=== PATIENT | female | born 1960 | race Caucasian/White ===

== ENCOUNTER 2020-02-02 05:57 | Day surgery (SDC) | payer MEDICAID ==
[~2020-02-02] VITALS: Ht 154.9 cm; Wt 84.5 kg
--- NOTE | ~2020-02-02 | OP ---
PATIENT NAME: GAB VICENTE MEDICAL RECORD: [id number] :60 LOCATION:D.OPS ADMISSION DATE: SURGEON: IMELDA CASTRO MD DATE OF OPERATION: 02/02/2020 PREOPERATIVE DIAGNOSES: 1. Metastatic lung cancer. 2. Lung cancer mets to the abdominal subcutaneous tissue. 3. Tobacco dependence syndrome. POSTOPERATIVE DIAGNOSES: 1. Metastatic lung cancer. 2. Lung cancer mets to the abdominal subcutaneous tissue. 3. Tobacco dependence syndrome. PROCEDURE: 1. Right subclavian vein PowerPort placement. 2. Fluoroscopic interpretation. 3. Excision of skin mets times 2 from the right abdomen. SURGEON: Imelda Castro MD REPORT OF PROCEDURE: The patient's right chest and right abdomen were prepped and draped in sterile fashion. A needle was used to cannulate the right subclavian vein and a guidewire was advanced with ease. Fluoro was used to note that the wire was in good position in the venous system. A transverse skin incision was made on the right superolateral chest and a subcutaneous pouch was made over the pectoral fascia. The catheter was tunneled between this pouch and the wire exit site. The port was sutured to the pectoral fascia with interrupted 4-0 Prolenes times 2. The catheter was cut with a beveled tip at 22 cm. The dilator trocar device was placed over the wire and the wire and dilator were removed. The catheter tip was advanced through the trocar and the trocar was then removed. Fluoro was used to note that the catheter tip rested in good position at the right atrial superior vena caval junction. The catheter aspirated nonpulsatile dark blood and flushed easily with heparinized saline. The subcutaneous tissues were reapproximated with interrupted 3-0 Vicryl and the skin was closed with running subcutaneous 5-0 Monocryl. The patient had 2 lesions on the right side of the abdomen. There are subcutaneous nodules that were very firm that were concerning for metastatic disease. The most superior one was in the right lateral subcostal region. An ovoid incision was made overlying this because the mass appeared to be adherent to the underlying skin. We used electrocautery to come around this mass and completely excised an approximately 2.5 cm mass and some surrounding fatty tissue. The subcutaneous tissues were then irrigated out with normal saline. We approached the more inferior lesion that was again on the lateral aspect of the right abdomen. A small skin incision was made overlying this mass, approximately the level of the umbilicus. There was a firm subcutaneous nodule present that was about 1.5 cm in size. Once this was completely excised, then we irrigated out the wound with normal saline. The 2 wounds were infused with a total of 10 mL of 0.25% Marcaine with epinephrine. The skin incisions were then closed with interrupted 3-0 Vicryl and a running subcutaneous 5-0 Monocryl. COMPLICATIONS: None. CONDITION: Stable. OPERATIVE REPORT [id number] GAB VICENTE ANESTHESIA: General endotracheal and local. BLOOD LOSS: Minimal. TRANSINT:[id number] Voice Confirmation ID: [id number] DOCUMENT ID: [id number] IMELDA CASTRO MD CC: MARKUS MONTALVO MD [id number] DICTATION DATE: 02/02/20925 PIPE LINE INSPECTOR: 02/02/20 1239 [facility] 02/02/20 [facility] [address] [place] [address]
[~2020-02-02 05:57] MED LIST: ALBUTEROL SULF8.5 GM INH; ALBUTEROL2.5 MG/3 M INH
[2020-02-02 06:17] LABS: HEMATOCRIT 42.2 % (36.0-48.0); LYMPHOCYTES 27.6 % (15-50); MCHC 33.2 g/dL (31.0-37.0); MCV 93.4 fL (80.0-100.0); MEAN PLATELET VOLUME 8.8 fL (7.4-10.4); NEUTROPHILS 59.5 % (40-80); PLATELET COUNT 265 10x3/uL (130-400); RBC 4.52 10x6/uL (4.00-5.40); RDW 12.9 % (11.5-14.5); WBC 8.1 10x3/uL (4.8-10.8)
[2020-02-02 06:35] LABS: APTT 30.1 SECONDS (22.8-39.4); INR 1.03 (0.85-1.17); PROTIME 13.4 SECONDS (11.6-15.0)
[2020-02-02 06:36] VITALS: BP 137/103; Ht 154.9 cm; Wt 84.5 kg
[2020-02-02 07:08] LABS: CALC OSMOLALITY 279 mosm/kg (275-300); CALCIUM 8.6 mg/dL (8.5-10.1); CARBON DIOXIDE 25.8 mmol/L (21.0-32.0); CHLORIDE - SERUM 104 mmol/L (98-107); CREATININE - SERUM 0.8 mg/dL (0.6-1.3); GLUCOSE 108 mg/dL (74-106); SODIUM 138 mmol/L (136-145); UREA NITROGEN 20 mg/dL (7-18); eGFR NON AFRICAN AMERICAN 78 mL/min (90-120)
[2020-02-02] MEDS ORDERED: HYDROCODON-ACE1 EA10 PO (09:16)
--- NOTE | 2020-02-02 09:37 | NUR ---
VANCOMYCIN 1.25GRAM IN 250CC OF NORMAL SALINE INFUSING ON ADMIT
--- NOTE | 2020-02-02 11:11 | NUR ---
1045 IV REMOVED AND INSTRUCTIONS GIVEN
== END 2020-02-02 11:11 | disposition home or self-care (01) ==
LOC: D.OPS 05:57
PROVIDERS: Anesthesiology; ATTEND Surgery
DX: C34.90 Malignant neoplasm of unspecified part of unspecified bronchus or lung (principal); C79.2 Secondary malignant neoplasm of skin; F17.200 Nicotine dependence, unspecified, uncomplicated

== ENCOUNTER → 2020-11-05 10:38 | Outpatient (CLI) | payer BC ==
[2020-02-02 06:36] VITALS: BMI 35.2
[~2020-11-05 10:38] MED LIST changes: +HYDROCODON-ACE1 EA10 PO
== END | disposition home or self-care (01) ==
LOC: D.MRI 10:38
PROVIDERS: ATTEND Nurse Practitioner
DX: C34.12 Malignant neoplasm of upper lobe, left bronchus or lung (principal); C79.2 Secondary malignant neoplasm of skin; C79.71 Secondary malignant neoplasm of right adrenal gland; C79.72 Secondary malignant neoplasm of left adrenal gland; C79.51 Secondary malignant neoplasm of bone; D70.1 Agranulocytosis secondary to cancer chemotherapy; M54.5 Low back pain; M54.6 Pain in thoracic spine